=== PATIENT | female | born 1980 | race Caucasian/White ===

== ENCOUNTER 2020-06-12 20:55 | Inpatient (IN) ==
[2020-06-12] MEDS ORDERED: Penicillin G Potassium IV 5,000,000 UNITS in NS 0.9% 100 ml BAG 100 ML IVPB ONE (22:26)
[2020-06-12] MEDS ORDERED: Buffered Lidocaine 1% SYRIN 1 ml INTRADERM ONE (22:26)
[2020-06-12] MEDS ORDERED: Lactated Ringers 1000 ml BAG 1,000 ML IV ONE (22:26)
[2020-06-12 22:44] LABS: Hematocrit 43 % (35-47); Mean Corpuscular HGB Conc 35 g/dL (31-36); Mean Corpuscular Hemoglobin 32 pg (27-31); Mean Corpuscular Volume 92 fL (80-97); Red Blood Count 4.65 10^6 /uL (3.70-4.87); Red Cell Distribution Width 13 % (10-15); White Blood Count 8.3 10^3/uL (3.5-10.8)
[2020-06-12 22:48] LABS: Uric Acid 6.5 mg/dL (2.3-6.6)
[2020-06-12 22:56] LABS: ABS Lymphocytes 1.4 10^3/ul (1.0-4.8); ABS Monocytes 0.4 10^3/ul (0-0.8); ABS Neutrophils 6.5 10^3/ul (1.5-7.7); Eosinophil % 0.4 %; Lymphocyte % 16.6 %; Mean Platelet Volume 10.2 fL (7.4-10.4); Platelet Count 94 10^3/uL (150-450)
[2020-06-12] MEDS ORDERED: ceFOXitin 2 GM IVPREMIX 2 GM/50 ML BAG IVPB ONE (22:56)
[2020-06-12] MEDS ORDERED: Morphine PF AMP (0.5MG/ML) 5 MG/10 ML AMP ONE (22:58)
[2020-06-12] MEDS ORDERED: Lactated Ringers 1000 ml BAG 1,000 ML IV SCH (23:00)
[2020-06-12] MEDS ORDERED: Penicillin G Potassium IV 3,000,000 UNITS in NS 0.9% 100 ml BAG 100 ML IVPB SCH (23:00)
[2020-06-12] MEDS ORDERED: Ondansetron 4 mg VIAL 2 MG/ML 2 ml VIAL ONE (23:01)
[2020-06-12] MEDS ORDERED: Oxytocin 10 UNITS/ML 1 ML VIAL ONE (23:01)
[2020-06-12] MEDS ORDERED: EPHEDrine (Pressors) 50 MG/ML VIAL ONE (23:59)
[2020-06-13] MEDS ORDERED: Glycerin ADULT 2.4 gm SUPP PR PRN (00:31)
[2020-06-13] MEDS ORDERED: Witch Hazel PAD JAR TOPICAL PRN (00:31)
[2020-06-13] MEDS ORDERED: RHO D Immune Globulin (HUMAN) 300 MCG = 1,500 I.U. INJ IM PRN (00:31)
[2020-06-13] MEDS ORDERED: Dibucaine 1% OINT 28.35 GM TUBE PR PRN (00:31)
[2020-06-13] MEDS ORDERED: Acetaminophen IV 1 GM/100ML 1,000 MG/100 ML VIAL IVPB ONE (00:39)
[2020-06-13] MEDS ORDERED: DiMENhydriNATE IV 50 mg/ml 1 ml VIAL IV PUSH PRN (00:39)
[2020-06-13] MEDS ORDERED: HYDROmorphone 1 MG/1 ML SYRINGE IV PRN (00:39)
[2020-06-13] MEDS ORDERED: Naloxone 0.4 mg VIAL 0.4 mg/ml 1 ml VIAL IV PRN ×2 (00:39→00:40)
[2020-06-13] MEDS ORDERED: Ondansetron 4 mg VIAL 2 MG/ML 2 ml VIAL IV PRN (00:40)
[2020-06-13] MEDS ORDERED: diPHENhydraMINE IV 50 MG/ML 1 ml VIAL (BENADRYL) IV PRN (00:45)
[2020-06-13 00:46] LABS: Urine Benzodiazepine Screen None Detected (None Detect); Urine Cannabinoids Screen None Detected (None Detect); Urine Opiates Screen None Detected (None Detect)
[2020-06-13] MEDS ORDERED: Lactated Ringers 1000 ml BAG 1,000 ML IV SCH (01:00)
[2020-06-13] MEDS ORDERED: Oxytocin in LR 20 UNITS/1,000 ML BAG IVPB SCH (01:00)
[2020-06-13 01:42] LABS: Urine Appearance Clear; Urine Bilirubin Negative (Negative); Urine Blood Negative (Negative); Urine Color Yellow; Urine Glucose Negative (Negative); Urine Ketones Negative (Negative); Urine Nitrite Negative (Negative); Urine Protein 2+(100 mg/dL) (Negative); Urine Specific Gravity 1.024 (1.010-1.030); Urine Urobilinogen Negative (Negative)
[2020-06-13 01:49] LABS: Urine Bacteria Absent (Absent); Urine Red Blood Cell Trace(0-2/hpf) (Absent); Urine Squamous Epithelial Cell Present (Absent); Urine White Blood Cell Trace(0-5/hpf) (Absent)
[2020-06-13] MEDS ORDERED: Magnesium Sulfate 2 gm BAG 2 GM/50 ML BAG IVPB ONE (01:56)
[2020-06-13] MEDS ORDERED: Magnesium Sulfate OB PREMIX 40 GM/1,000 ML BAG IVPB SCH ×2 (02:00)
[2020-06-13 02:31] LABS: EGFR African American 76.4 (>60); EGFR Non-African American 63.1 (>60)
[2020-06-13 06:24] LABS: ABS Lymphocytes 1.2 10^3/ul (1.0-4.8); ABS Monocytes 0.6 10^3/ul (0-0.8); ABS Neutrophils 8.2 10^3/ul (1.5-7.7); Hematocrit 34 % (35-47); Lymphocyte % 12.4 %; Mean Corpuscular HGB Conc 36 g/dL (31-36); Mean Corpuscular Hemoglobin 33 pg (27-31); Mean Corpuscular Volume 91 fL (80-97); Mean Platelet Volume 9.7 fL (7.4-10.4); Platelet Count 85 10^3/uL (150-450); Red Blood Count 3.68 10^6 /uL (3.70-4.87); Red Cell Distribution Width 13 % (10-15)
[2020-06-13 06:46] LABS: ALT 45 U/L (7-52); AST 42 U/L (13-39); Glucose 131 mg/dL (70-100)
[2020-06-14 08:47] LABS: ABS Eosinophils 0.1 10^3/ul (0-0.6); ABS Lymphocytes 1.4 10^3/ul (1.0-4.8); ABS Monocytes 0.3 10^3/ul (0-0.8); ABS Neutrophils 6.7 10^3/ul (1.5-7.7); Eosinophil % 1.1 %; Hematocrit 32 % (35-47); Hemoglobin 11.2 g/dL (12.0-16.0); Mean Corpuscular HGB Conc 35 g/dL (31-36); Mean Corpuscular Hemoglobin 33 pg (27-31); Mean Corpuscular Volume 93 fL (80-97); Mean Platelet Volume 9.9 fL (7.4-10.4); Platelet Count 89 10^3/uL (150-450); Red Blood Count 3.45 10^6 /uL (3.70-4.87); Red Cell Distribution Width 14 % (10-15); White Blood Count 8.5 10^3/uL (3.5-10.8)
[2020-06-14 09:07] LABS: Albumin 2.4 g/dL (3.2-5.2); Albumin/Globulin Ratio 1.3 (1-3); Calcium 6.8 mg/dL (8.6-10.3); EGFR African American 75.5 (>60); EGFR Non-African American 62.4 (>60); Globulin 1.9 g/dL (2-4); Potassium 4.8 mmol/L (3.5-5.0); Total Bilirubin 0.2 mg/dL (0.2-1.0); Total Protein 4.3 g/dL (6.4-8.9)
[2020-06-15 07:41] VITALS: BP 119/77
== END 2020-06-15 15:40 | disposition home or self-care (01) | DRG 540 ==
LOC: MCHOBOUT 20:55 → MCHOB 22:12
PROVIDERS: ADMIT Obstetrics & Gynecology; ATTEND Obstetrics & Gynecology